=== PATIENT | male | born 1995 | race Two or more races ===

== ENCOUNTER 2022-07-22 20:38 | Emergency (ER) | payer MEDICAID, OTHER ==
[~2022-07-22] VITALS: Ht 172.7 cm; Wt 100.5 kg
[2022-07-22] MEDS ORDERED: IBUPROFEN 800MG TABLET PO ONE (23:45)
[2022-07-22] MEDS ORDERED: IBUP-2029 MT (23:47)
[2022-07-23 00:02] VITALS: BP 118/57
== END 2022-07-23 00:03 | disposition home or self-care (01) ==
LOC: ER 20:38
DX: S80.02XA Contusion of left knee, initial encounter (principal); W16.312A Fall into other water striking water surface causing other injury, initial encounter; Y93.89 Activity, other specified; Y92.89 Other specified places as the place of occurrence of the external cause
CPT/HCPCS: 73590; 99283